=== PATIENT | female | born 1950 | race Caucasian/White ===

== ENCOUNTER 2017-07-24 17:00 | Emergency (ER) | payer MEDICARE ==
[~2017-07-24] VITALS: Ht 167.6 cm; Wt 88.5 kg
== END 2017-07-24 17:35 | disposition home or self-care (01) ==
LOC: ED 17:00
DX: H18.821 Corneal disorder due to contact lens, right eye (principal); Z88.7 Allergy status to serum and vaccine; Z88.5 Allergy status to narcotic agent
CPT/HCPCS: 99282

== ENCOUNTER 2021-06-11 10:29 | Emergency (ER) | payer MEDICARE ==
[~2021-06-11] VITALS: Ht 167.6 cm; Wt 88.5 kg
--- OUTSIDE RECORDS SUMMARY | 2021-06-11 10:36 | XMS ---
PreManage Notification: DONAVAN URIBE [employer] Events No recent Security Events currently on file CRITERIA MET - Group Notification CARE PROVIDERS There are no care providers on record at this time. [facility] has no Care Guidelines for this patient. Eric VISIT COUNT (12 MO.) 1 YU Junior TOTAL 1 NOTE: Visits indicate total known visits. ED/UCC VISIT TRACKING (12 MO.) 06/11/2021 10:30 YU Hernandez OR TYPE: Emergency COMPLAINT: - COVID +, WEAKNESS INPATIENT VISIT TRACKING (12 MO.) No inpatient visits to display in this time frame [email or web address]
== END 2021-06-11 12:53 | disposition home or self-care (01) ==
LOC: ED 10:29
DX: U07.1 COVID-19 (principal); Z88.5 Allergy status to narcotic agent; Z88.7 Allergy status to serum and vaccine
CPT/HCPCS: 99284-25; M0243; Q0244